=== PATIENT | male | born 1985 | race Caucasian/White ===

== ENCOUNTER 2018-11-14 18:10 | Emergency (ER) | payer OTHER ==
[~2018-11-14] VITALS: Ht 182.8 cm; Wt 83.9 kg
[~2018-11-14 18:10] MED LIST: KEFLEX500 MG PO; MOTRIN800 MG PO; NKHM
[2018-11-14] MEDS ORDERED: CEPHALEXIN500 M1 PO (18:51)
== END 2018-11-14 19:58 | disposition home or self-care (01) ==
LOC: ED 18:10
DX: S61.012A Laceration without foreign body of left thumb without damage to nail, initial encounter (principal); W23.0XXA Caught, crushed, jammed, or pinched between moving objects, initial encounter; Y93.89 Activity, other specified; Y92.89 Other specified places as the place of occurrence of the external cause; Y99.8 Other external cause status

== ENCOUNTER → 2020-11-26 | Outpatient (CLI) | payer OTHER ==
[~2020-11-26] MED LIST changes: +CEPHALEXIN500 M1 PO
== END | disposition home or self-care (01) ==
LOC: COVID19 13:10
PROVIDERS: ATTEND Student in an Organized Health Care Education/Training Program
DX: Z20.828 Contact with and (suspected) exposure to other viral communicable diseases (principal)